=== PATIENT | male | born 1990 | race Asian ===

== ENCOUNTER 2017-04-13 17:17 | Emergency (ER) | payer SELFPAY ==
[~2017-04-13] VITALS: Ht 182.9 cm; Wt 83.9 kg
[2017-04-13 17:24] VITALS: BP 125/61
== END 2017-04-13 21:33 | disposition left against medical advice (07) ==
LOC: ER 17:33
DX: K08.89 Other specified disorders of teeth and supporting structures (principal); Z53.21 Procedure and treatment not carried out due to patient leaving prior to being seen by health care provider